=== PATIENT | female | born 1935 | race Caucasian/White ===

== ENCOUNTER → 2017-11-22 09:22 | Outpatient (CLI) | payer MEDICARE, OTHER, SELFPAY ==
--- NOTE | 2017-11-22 | DI.MG.S_ITS ---
BILATERAL DIGITAL SCREENING MAMMOGRAM 3D/2D WITH CAD: 11/22/2017 CLINICAL: Routine screening. Family history of breast cancer. Comparison is made to exams dated: 11/16/2016 mammogram, 11/16/2015 mammogram, and 11/12/2014 mammogram - [facility]. The tissue of both breasts is heterogeneously dense. This may lower the sensitivity of mammography. Current study was also evaluated with a Computer Aided Detection (CAD) system. No significant masses, calcifications, or other findings are seen in either breast. There has been no significant interval change. IMPRESSION: NEGATIVE There is no mammographic evidence of malignancy. A 1 year screening mammogram is recommended. This exam was interpreted at Station ID: [id number]. NOTE: For mammograms, a report in lay terms will be sent to the patient. Approximately 15% of breast malignancies will not be visualized mammographically. In the management of a palpable breast mass, a negative mammogram must not discourage biopsy of a clinically suspicious lesion. Electronically Signed By: Antonia cornejo/amy:11/22/2017 10:11:48 letter sent: Normal Exam ACR BI-RADS Category 1: Negative 3341F
== END ==
PROVIDERS: PCP Internal Medicine; Visit Provider Internal Medicine
DX: Z12.31 Encounter for screening mammogram for malignant neoplasm of breast (principal); Z80.3 Family history of malignant neoplasm of breast
CPT/HCPCS: 77063; 77067

== ENCOUNTER → 2018-02-06 08:39 | Outpatient (CLI) | payer MEDICARE, OTHER, SELFPAY ==
[2018-02-06 09:12] LABS: Add Manual Diff / Slide Review NO; Basophils Percent Auto 0.3 % (0-2); Hematocrit 39.2 % (36-46); Hemoglobin 13.1 g/dL (12.0-16.0); Lymphocytes Percent Auto 31.9 % (25-40); Mean Corpuscular HGB Conc 33.5 % (30-36); Mean Corpuscular Volume 86.8 fL (80-100); Monocytes Percent Auto 11.5 % (3-14); Neutrophils Absolute Auto 1700 /uL (3000-5900); Neutrophils Percent Auto 53.3 % (50-75); Platelet Count 173 X10^3/uL (150-400); Red Blood Cell Count 4.52 X10^6/uL (4.0-5.2); Red Cell Distribution Width 14.1 % (11.6-14.8); White Blood Cell Count 3.1 X10^3/uL (4.5-11.0)
[2018-02-06 09:39] LABS: Alanine Aminotransferase 29 IU/L (9-52); Albumin 4.1 g/dL (3.5-5.0); Albumin Globulin Ratio 1.4 (1.0-2.8); Alkaline Phosphatase 63 U/L (38-126); Aspartate Aminotransferase 23 IU/L (14-36); BUN Creatinine Ratio 22.9 (6-22); Bilirubin Total 0.5 mg/dL (0.2-1.3); Blood Urea Nitrogen 16 mg/dL (7-17); Calcium 9.4 mg/dL (8.4-10.2); Carbon Dioxide 31 mmol/L (22-32); Chloride 104 mmol/L (98-107); Cholesterol 181 mg/dL (140-199); Estimated Glomerular Filt Rate > 60.0 mL/min (>60); Globulin 2.9 g/dL (1.7-4.1); Glucose 91 mg/dL (80-110); HDL Cholesterol 46 mg/dL (40-60); HEMOLYSIS < 15 (0-50); LDL Cholesterol Calculated 112 mg/dL (<100); Potassium 4.1 mmol/L (3.4-5.1); Sodium 143 mmol/L (137-145); Triglycerides 115 mg/dL (35-150); VLDL Cholesterol Calculated 23 mg/dL (2-30)
== END ==
PROVIDERS: PCP Family Medicine; Visit Provider Internal Medicine
DX: E78.2 Mixed hyperlipidemia (principal); I69.30 Unspecified sequelae of cerebral infarction; Z87.442 Personal history of urinary calculi
CPT/HCPCS: 36415; 80053; 80061; 85025

== ENCOUNTER → 2018-10-22 08:13 | Outpatient (CLI) | payer MEDICARE, OTHER, SELFPAY ==
[2018-10-22 11:15] LABS: Cholesterol 155 mg/dL (140-199); HDL Cholesterol 38 mg/dL (40-60); LDL Cholesterol Calculated 95 mg/dL (<100); Triglycerides 109 mg/dL (35-150)
[2018-10-22 11:32] LABS: Vitamin D 25 Hydroxy (D3) 42.9 ng/mL (30.0-100.0)
== END ==
PROVIDERS: PCP Physician Assistant; Visit Provider Physician Assistant
DX: E78.2 Mixed hyperlipidemia (principal); M81.0 Age-related osteoporosis without current pathological fracture
CPT/HCPCS: 36415; 80061; 82306

== ENCOUNTER → 2018-11-22 10:51 | Outpatient (CLI) | payer MEDICARE, OTHER, SELFPAY ==
--- NOTE | 2018-11-22 | DI.MG.S_ITS ---
BILATERAL DIGITAL SCREENING MAMMOGRAM 3D/2D WITH CAD: 11/22/2018 CLINICAL: Routine screening. Family history of breast cancer. Comparison is made to exams dated: 11/22/2017 mammogram, 11/16/2016 mammogram, and 11/16/2015 mammogram - [facility]. The tissue of both breasts is heterogeneously dense. This may lower the sensitivity of mammography. Current study was also evaluated with a Computer Aided Detection (CAD) system. There are benign calcifications in both breasts. No significant masses, calcifications, or other findings are seen in either breast. There has been no significant interval change. IMPRESSION: There is no mammographic evidence of malignancy. A 1 year screening mammogram is recommended. This exam was interpreted at Station ID: [id number]. NOTE: For mammograms, a report in lay terms will be sent to the patient. Approximately 15% of breast malignancies will not be visualized mammographically. In the management of a palpable breast mass, a negative mammogram must not discourage biopsy of a clinically suspicious lesion. Electronically Signed By: Dereje zaldivar/amy:11/22/2018 11:35:14 letter sent: Normal Exam ACR BI-RADS Category 2: Benign Finding(s) 3342F
== END ==
PROVIDERS: PCP Physician Assistant; Visit Provider Physician Assistant
DX: Z12.31 Encounter for screening mammogram for malignant neoplasm of breast (principal); Z80.3 Family history of malignant neoplasm of breast
CPT/HCPCS: 77063; 77067

== ENCOUNTER → 2018-11-22 13:30 | Outpatient (CLI) | payer MEDICARE, OTHER, SELFPAY ==
--- NOTE | 2018-11-22 13:33 | DI.RAD.S_ITS ---
PROCEDURE: XR CERVICAL SPINE 2V OR 3V INDICATIONS: Neck and upper back pain TECHNIQUE: The view(s) of the cervical spine were acquired. COMPARISON: [facility], CERVICAL SPINE 2 OR 3 VIEWS, 02/11/2008, 11:49. FINDINGS: Bones: No fractures or dislocations to the T1 level. The lateral masses of C1 appear intact on the odontoid view. No suspicious bony lesions. There is severe degenerative disc disease at C4-C5, C5-C6 and C6-C7. Bilateral facet arthropathy, severe at C3-C4 bilaterally and C4-C5 bilaterally. Soft tissues: No prevertebral soft tissue swelling. Carotid artery calcification consistent with atherosclerosis. IMPRESSION: Severe degenerative disc and facet disease. Dictated by: Kamryn Walsh M.D. on 11/22/2018 at 17:34 Approved by: Kamryn Walsh M.D. on 11/22/2018 at 17:35
== END ==
PROVIDERS: PCP Physician Assistant; Visit Provider Physician Assistant
DX: M54.9 Dorsalgia, unspecified (principal); M50.321 Other cervical disc degeneration at C4-C5 level; M50.322 Other cervical disc degeneration at C5-C6 level; M50.323 Other cervical disc degeneration at C6-C7 level; M47.812 Spondylosis without myelopathy or radiculopathy, cervical region
CPT/HCPCS: 72040

== ENCOUNTER → 2018-12-11 07:13 | Outpatient (CLI) | payer MEDICARE, OTHER, SELFPAY ==
--- NOTE | 2018-12-11 07:15 | DI.US.S_ITS ---
PROCEDURE: US CAROTID DOPPLER BI INDICATIONS: PLAQUE TECHNIQUE: Color and pulse Doppler interrogation was performed of both carotid systems, with image documentation and velocity measurements. COMPARISON: [facility], , CAROTID ARTERY DOPPLER BILAT, 09/20/2007, 8:40. FINDINGS: Stenosis calculations are based on SRU (Society of Radiologists in Ultrasound) criteria. Right side: Brachial blood pressure: 140/67 mm Hg. Common carotid artery peak systolic velocity: 99 cm/sec. Internal carotid artery peak systolic velocity: 85 cm/sec. Internal carotid artery end diastolic velocity: 26 cm/sec. External carotid artery peak systolic velocity: 75 cm/sec. ICA/CCA peak systolic ratio: 0.9. Oliveira scale imaging description: Minimal scattered plaque. Percent internal carotid artery stenosis: Less than 50%. Vertebral artery: Flow direction is antegrade. Left side: Brachial blood pressure: 137/68 mm Hg. Common carotid artery peak systolic velocity: 95 cm/sec. Internal carotid artery peak systolic velocity: 67 cm/sec. Internal carotid artery end diastolic velocity: 26 cm/sec. External carotid artery peak systolic velocity: 68 cm/sec. ICA/CCA peak systolic ratio: 0.7. Oliveira scale imaging description: Minimal scattered plaque. Percent internal carotid artery stenosis: Less than 50%. Vertebral artery: Flow direction is antegrade. IMPRESSION: Less than 50% bilateral internal carotid artery stenosis. Dictated by: Bhanu Giordano [facility] Interpreted: Maik Carter MD on 12/11/2018 at 16:24 Approved by: Maik Carter M.D. on 12/13/2018 at 10:39
--- NOTE | 2018-12-11 07:15 | DI.MRI.S_ITS ---
PROCEDURE: MR CERVICAL SPINE WO CON INDICATIONS: evaluation TECHNIQUE: Noncontrast sagittal T1 spin echo and T2 fast spin echo, sagittal STIR, foraminal oblique sagittal T2 fast spin echo, and axial gradient echo or T2 fast spin echo through the cervical spine. COMPARISON: None. FINDINGS: Image quality: Excellent. Alignment and Curvature: There is trace C3-C4 and at C4-C5 anterolisthesis. There is trace C5-C6 retrolisthesis. Bone Marrow: Reactive endplate change is noted adjacent to the C4-C5, C5-C6 and C6-C7 discs. Spinal Cord: Visualized spinal cord has normal size and signal. No cerebellar tonsillar herniation. Paraspinous Soft Tissues: No paravertebral masses. Prevertebral soft tissues are normal in thickness. C2-C3: Loss of disc signal. No central stenosis. Moderate left facet hypertrophy. Mild left neural foraminal narrowing. No neural compression. C3-C4: Loss of disc signal. Moderate, diffuse disc bulge. Mild ligamentum flavum hypertrophy. Moderate narrowing of the central canal. Moderate bilateral facet hypertrophy. Moderate bilateral uncovertebral joint hypertrophy. Severe bilateral neural foraminal narrowing with compression of the C4 nerve roots. C4-C5: Loss of disc signal and height. Mild, diffuse disc bulge. Severe right and mild left facet hypertrophy. Mild narrowing of the central canal. Severe right and moderate left neural foraminal narrowing with compression of the right C5 nerve root. C5-C6: Loss of disc signal and height. Mild, diffuse disc bulge. Mild ligamentum flavum hypertrophy. Mild to moderate narrowing of the central canal. Moderate right and mild left facet hypertrophy. Moderate bilateral neural foraminal narrowing. No neural compression. C6-C7: Loss of disc signal and height. Mild to moderate diffuse disc bulge. Mild to moderate narrowing of the central canal. Moderate right and mild left facet hypertrophy. Moderate bilateral neural foraminal narrowing. No neural compression. C7-T1: Loss of the signal. No central stenosis. No neural foraminal narrowing. No neural compression. IMPRESSION: 1. Multilevel degenerative disc disease. 2. Multilevel facet and uncovertebral joint arthropathy. 3. Moderate moderate C3-C4 central canal narrowing. Mild to moderate C5-C6 and C6-C7 central canal narrowing. Mild C4 and C5 central canal narrowing. 4. Severe bilateral C3-C4 neural foraminal narrowing. Severe right and moderate left C4-C5 neural foraminal narrowing. Moderate bilateral C5-C6 and C6-C7 neural foraminal narrowing. Mild left C2 and C3 neural foraminal narrowing. 5. Compression of the exiting bilateral C4 nerve roots and the exiting right C5 nerve root secondary to neural foraminal narrowing. Dictated by: Carley Waters MD, PhD on 12/11/2018 at 13:54 Approved by: Carley Waters MD, PhD on 12/11/2018 at 14:36
== END ==
PROVIDERS: PCP Physician Assistant; Visit Provider Physician Assistant
DX: M50.30 Other cervical disc degeneration, unspecified cervical region (principal); M47.812 Spondylosis without myelopathy or radiculopathy, cervical region; I65.29 Occlusion and stenosis of unspecified carotid artery
CPT/HCPCS: 72141; 93880

== ENCOUNTER → 2019-10-07 08:02 | Outpatient (CLI) | payer MEDICARE, OTHER, SELFPAY ==
[2019-10-07 09:56] LABS: Hematocrit 37.9 % (36-46); Hemoglobin 12.9 g/dL (12.0-16.0); Mean Corpuscular HGB Conc 33.9 % (30-36); Mean Corpuscular Hemoglobin 29.6 PG (26-34); Mean Corpuscular Volume 87.5 fL (80-100); Platelet Count 160 X10^3/uL (150-400); Red Blood Cell Count 4.34 X10^6/uL (4.0-5.2); White Blood Cell Count 3.6 X10^3/uL (4.5-11.0)
[2019-10-07 10:21] LABS: Alanine Aminotransferase 21 IU/L (<35); Albumin Globulin Ratio 1.4 (1.0-2.8); Alkaline Phosphatase 66 U/L (38-126); Aspartate Aminotransferase 26 IU/L (14-36); BUN Creatinine Ratio 23.2 (6-22); Bilirubin Total 0.4 mg/dL (0.2-1.3); Blood Urea Nitrogen 16 mg/dL (7-17); Calcium 9.7 mg/dL (8.4-10.2); Carbon Dioxide 27 mmol/L (22-32); Chloride 105 mmol/L (98-107); Cholesterol 190 mg/dL (140-199); Estimated Glomerular Filt Rate > 60.0 mL/min (>60); Globulin 2.8 g/dL (1.7-4.1); Glucose 88 mg/dL (80-110); HDL Cholesterol 44 mg/dL (40-60); HEMOLYSIS < 15 (0-50); LDL Cholesterol Calculated 120 mg/dL (<100); Sodium 139 mmol/L (137-145); Total Protein 6.8 g/dL (6.3-8.2); Triglycerides 128 mg/dL (35-150)
== END ==
PROVIDERS: PCP Nurse Practitioner Family; Referring Provider Nurse Practitioner Family; Visit Provider Nurse Practitioner Family
DX: D72.819 Decreased white blood cell count, unspecified (principal); M85.80 Other specified disorders of bone density and structure, unspecified site; R79.9 Abnormal finding of blood chemistry, unspecified; E78.2 Mixed hyperlipidemia
CPT/HCPCS: 36415; 80053; 80061; 82306; 85027

== ENCOUNTER → 2019-10-19 09:30 | Outpatient (CLI) | payer MEDICARE, OTHER, SELFPAY ==
[2019-10-20 07:57] LABS: COVID19 Sendout Not Detected (Not Detect)
== END ==
PROVIDERS: PCP Nurse Practitioner Family; Visit Provider Nurse Practitioner
DX: Z01.812 Encounter for preprocedural laboratory examination (principal)
CPT/HCPCS: 87635

== ENCOUNTER 2019-10-22 08:27 | Day surgery (SDC) | payer MEDICARE, OTHER, SELFPAY ==
[2019-10-22] MEDS: PROPARACAINE 0.5% OPHTH SOL 2 DROPS EYE-OP (09:05)
[2019-10-22] MEDS: CATARACT EYE COMPOUND (10 DROPS/SYRINGE) 3 DROPS EYE-OP (09:05)
[2019-10-22 09:06] VITALS: BP 150/66; PULSE 62; RESP 16; TEMP 36.4; O2SAT 98; BMI 27.3
--- NOTE | 2019-10-22 10:10 | PM.PREOP ---
Pre-operative Note Interval Note History & Physical reviewed/Exam performed by Physician: Yes Changes to H&P: No
--- NOTE | 2019-10-22 10:10 | PM.OP.1 ---
Operative Date/Time/Diagnoses Pre-op diagnosis: Nuclear cataract right eye Procedure & Clinicians Procedure: Cataract Surgery Same procedure as scheduled: Yes Surgeon: Jesse Bean Anesthesia Type: MAC +/- and Sedation Operative Notes Procedure in detail: Patient brought to the operating suite. Tetracaine drops placed in the right eye. Patient was prepped and draped in sterile manner. Wire lid speculum was placed in the eye. Betadine drops were placed on the eye. This was irrigated. Lidocaine jelly was placed on the eye. A paracentesis port was created with a side-port blade. 0.1 mL 1% preservative free lidocaine was injected into the anterior chamber. The anterior chamber was deepened with viscoelastic. 2.6 mm keratome was used to create a temporal clear corneal incision. Cystotome and Utrata forceps were used to create continuous tear capsulorrhexis. Balanced salt solution was used to hydro dissect the nucleus. The phacoemulsification handpiece was inserted and the nucleus was removed using the stop and chop technique. The irrigation aspiration handpiece was inserted and the remaining cortex was removed. Anterior chamber was deepened with viscoelastic. An García ZCB00 intraocular lens with a power of 24.5 was injected into the capsular bag. Irrigation aspiration handpiece was inserted and the remaining viscoelastic was removed. Incision was hydrated with balanced salt solution and found to be leak free with pressure with Weck-Nilsa sponges. 0.1 mL Vigamox injected anterior chamber. 0.3 mL Kenalog 10 mg was injected subconjunctivally. Lid speculum was removed. The patient left the operating room in excellent condition. Complications: none Post-operative Condition: stable Disposition: same day surgery
[2019-10-22] MEDS: LIDOCAINE JELLY 2% 5 ML 1 APPLIC TOP (10:40)
[2019-10-22] MEDS: MOXIFLOXACIN INJ 5 MG/ML VIAL EYE-OP (10:40)
[2019-10-22] MEDS: CHONDROIDTIN/SOD HYALURONATE 1.05 ML SYRINGE INTRAOCULA (10:40)
[2019-10-22] MEDS: PHENYLEPHRINE/LIDOCAINE VIAL (OR) 0.2 ML EYE-OP (10:40)
[2019-10-22] MEDS: TRIAMCINOLONE 50 MG/5 ML VIAL INJ (10:40)
[2019-10-22] MEDS: BALANCED SALT IRRIG SOLN NO.2 500 ML, EPINEPHrine 1 MG IRR (10:41)
[2019-10-22] MEDS: TETRACAINE 0.5% OPHTH DROPS 4 ML 2 DROPS EYE-OP (10:41)
[2019-10-22 10:53] VITALS: BP 143/65; PULSE 55; RESP 12; TEMP 36.4; O2SAT 99
== END 2019-10-22 11:10 | disposition home or self-care (01) ==
PROVIDERS: PCP Nurse Practitioner Family; Referring Provider Ophthalmology; Visit Provider Ophthalmology
PROC: (CPT 66984; principal; 2019-10-22 10:15)
DX: H25.11 Age-related nuclear cataract, right eye (principal); G47.33 Obstructive sleep apnea (adult) (pediatric)
CPT/HCPCS: 66984; J0171; J2250; J3301

== ENCOUNTER → 2019-11-02 14:49 | Outpatient (CLI) | payer MEDICARE, OTHER, SELFPAY ==
[2019-11-03 23:05] LABS: COVID19 Sendout Not Detected (Not Detect)
== END ==
PROVIDERS: PCP Nurse Practitioner Family; Visit Provider Physician Assistant
DX: Z01.812 Encounter for preprocedural laboratory examination (principal)
CPT/HCPCS: 87635

== ENCOUNTER 2019-11-05 08:23 | Day surgery (SDC) | payer MEDICARE, OTHER, SELFPAY ==
[2019-11-05] MEDS: CATARACT EYE COMPOUND (10 DROPS/SYRINGE) 3 DROPS EYE-OP (09:07)
[2019-11-05] MEDS: PROPARACAINE 0.5% OPHTH SOL 2 DROPS EYE-OP (09:07)
[2019-11-05 09:24] VITALS: BP 136/90; PULSE 58; RESP 16; TEMP 36.2; O2SAT 98; BMI 24.0
--- NOTE | 2019-11-05 10:00 | PM.PREOP ---
Pre-operative Note Interval Note History & Physical reviewed/Exam performed by Physician: Yes Changes to H&P: No
--- NOTE | 2019-11-05 10:01 | P.OP_ITS ---
Operative Date/Time/Diagnoses Pre-op diagnosis: Nuclear Cataract Left eye Post-op diagnosis: same Procedure & Clinicians Same procedure as scheduled: Yes Surgeon: Jesse Bean Anesthesia Type: MAC +/- and Sedation Operative Notes Procedure in detail: Patient brought to the operating suite. Tetracaine drops placed in the left eye. Patient was prepped and draped in sterile manner. Wire lid speculum was placed in the eye. Betadine drops were placed on the eye. This was irrigated. Lidocaine jelly was placed on the eye. A paracentesis port was created with a side-port blade. 0.1 mL 1% preservative free lidocaine was injected into the anterior chamber. The anterior chamber was deepened with viscoelastic. 2.6 mm keratome was used to create a temporal clear corneal incision. Cystotome and Utrata forceps were used to create continuous tear capsulorrhexis. Balanced salt solution was used to hydro dissect the nucleus. The phacoemulsification handpiece was inserted and the nucleus was removed using the stop and chop technique. The irrigation aspiration handpiece was inserted and the remaining cortex was removed. Anterior chamber was deepened with viscoe lastic. An García ZCB00 intraocular lens with a power of 24.5 was injected into the capsular bag. Irrigation aspiration handpiece was inserted and the remaining viscoelastic was removed. Incision was hydrated with balanced salt solution and found to be leak free with pressure with Weck-Nilsa sponges. 0.1 mL Vigamox injected anterior chamber. 0.3 mL Kenalog 10 mg was injected subconjunctivally. Lid speculum was removed. The patient left the operating room in excellent condition. Complications: none Post-operative Condition: stable Disposition: same day surgery
[2019-11-05] MEDS: CHONDROIDTIN/SOD HYALURONATE 1.05 ML SYRINGE INTRAOCULA (10:36)
[2019-11-05] MEDS: LIDOCAINE JELLY 2% 5 ML 1 APPLIC TOP (10:36)
[2019-11-05] MEDS: MOXIFLOXACIN INJ 5 MG/ML VIAL EYE-OP (10:36)
[2019-11-05] MEDS: PHENYLEPHRINE/LIDOCAINE VIAL (OR) 0.2 ML EYE-OP (10:36)
[2019-11-05] MEDS: TRIAMCINOLONE 50 MG/5 ML VIAL INJ (10:37)
[2019-11-05] MEDS: TETRACAINE 0.5% OPHTH DROPS 4 ML 2 DROPS EYE-OP (10:37)
[2019-11-05] MEDS: BALANCED SALT IRRIG SOLN NO.2 500 ML, EPINEPHrine 1 MG IRR (10:37)
[2019-11-05 14:21] VITALS: BP 120/56; PULSE 55; RESP 16; TEMP 36.3; O2SAT 94
== END 2019-11-05 10:57 | disposition home or self-care (01) ==
PROVIDERS: PCP Nurse Practitioner Family; Referring Provider Ophthalmology; Visit Provider Ophthalmology
PROC: (CPT 66984; principal; 2019-11-05 10:15)
DX: H25.12 Age-related nuclear cataract, left eye (principal); G47.33 Obstructive sleep apnea (adult) (pediatric); E78.5 Hyperlipidemia, unspecified; K21.9 Gastro-esophageal reflux disease without esophagitis; F41.9 Anxiety disorder, unspecified; F32.9 Major depressive disorder, single episode, unspecified
CPT/HCPCS: 66984; J0171; J2250; J3010; J3301

== ENCOUNTER → 2019-11-16 11:08 | Outpatient (CLI) | payer MEDICARE, OTHER, SELFPAY ==
[2019-11-18 20:45] LABS: COVID19 Sendout Not Detected (Not Detect)
== END ==
PROVIDERS: PCP Nurse Practitioner Family; Visit Provider Physician Assistant
DX: Z11.59 Encounter for screening for other viral diseases (principal)
CPT/HCPCS: 87635

== ENCOUNTER 2019-11-19 12:01 | Day surgery (SDC) | payer MEDICARE, OTHER, SELFPAY ==
--- NOTE | 2019-11-19 | PATH_ITS ---
[facility] Accession Number: [id number] . 01 Material submitted: . PART A: colon - RANDOM RIGHT COLON PART B: colon - RANDOM TRANSVERSE COLON PART C: colon - RANDOM LEFT COLON . 02 Diagnosis: A-B: Random Right, Transverse Colon, Biopsies: Colonic mucosa with no diagnostic abnormality. Negative for active, chronic, and microscopic colitis. Negative for dysplasia and malignancy. . C. Random Left Colon, Biopsies: Colonic mucosa with mild melanosis coli. Negative for active, chronic, and microscopic colitis. Negative for dysplasia and malignancy. MRV 11/21/2019 1312 Local . 02 Electronically signed: . Chester Rebolledo MD, PhD, Pathologist NPI- [id number] . 01 Gross description: . Part A: RANDOM RIGHT COLON: Received in formalin is 1 fragment(s) of hernandez, soft tissue measuring 0.4 x 0.3 x 0.2 cm submitted entirely in 1 cassette(s) Part B: RANDOM TRANSVERSE COLON: Received in formalin are 2 fragment(s) of hernandez, soft tissue measuring 0.3 x 0.3 x 0.2 cm to 0.2 x 0.1 x 0.1 cm submitted entirely in 1 cassette(s) Part C: RANDOM LEFT COLON: Received in formalin is 1 fragment(s) of hernandez, soft tissue measuring 0.3 x 0.2 x 0.2 cm submitted entirely in 1 cassette(s) /QBJ 11/20/2019 0930 Local . 02 Pathologist provided ICD-10: R19.4, K63.89 . 02 CPT . 402621, 502357, 640829 Performed at: [address] [facility] [address], [place], [place] [id number] MD Brandin Cheng MD Phone: [phone] Performed at: 02 [facility] [address] [place] [id number] MD Jamila Razo MD Phone: [phone]
[2019-11-19 12:19] VITALS: BP 133/76; PULSE 84; RESP 20; TEMP 36.3; O2SAT 93
[2019-11-19 12:21] VITALS: BMI 26.3
--- NOTE | 2019-11-19 12:47 | PM.HP.1 ---
History of Present Illness History of Present Illness Date Patient Seen: 11/19/19 Time Patient Seen: 12:48 Chief complaint: SDC Narrative: This is an 84-year-old woman with history of colonoscopy 10 years ago, on which she believes they found some polyps. She denies any melena, hematochezia, unexplained abdominal pain, or unexplained weight loss. She has had some change in her bowel habits, with frequent bowel movements throughout the day. So she was referred for a colonoscopy. ROS: Positive for anxiety, depression, psoriasis, kidney stones, sleep apnea, GERD symptoms. Thirteen system review is otherwise negative other than as mentioned below and in HPI. PE: GENERAL: Well groomed and cooperative. Appears stated age. Answers questions promptly and appropriately. Vital signs noted. HENT: Normocephalic, atraumatic. Hearing intact. EYES: Conjunctiva pink, sclera white, no periorbital swelling. CARDIOVASCULAR: Regular rate. No pedal edema. RESPIRATORY: Non-tachypneic, breathing comfortably on room air. GASTROINTESTINAL: Abdomen soft and non-distended GENITALURINARY: No flank tenderness. MUSCULOSKELETAL: Equal tone and mass bilaterally. SKIN: Warm, dry, soft, appropriate color for ethnicity. No other lesions, rashes, or wounds. NEURO: Alert and Oriented X 3. No gross sensory deficits, or cognitive issues. PSYCH: Appropriate affect and mood. 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 Father Alcohol abuse Social History: household members spouse lives independently Yes caregiver/support person No Tobacco & Substance use: Smoking Status Former smoker alcohol intake current alcohol intake frequency 0-2 drinks per day Substance Use Type does not use Meds Home Medications and Allergies Home Medications Medication Instructions Recorded Confirmed Type omeprazole 20 mg capsule,delayed 20 mg PO DAILY 10/02/19 11/19/19 History release paroxetine HCl 10 mg tablet 10 mg PO DAILY #90 tab 10/02/19 11/19/19 Rx pravastatin 20 mg tablet 20 mg PO QDAY #90 tab 10/02/19 11/19/19 Rx cephalexin 500 mg capsule 500 mg PO BID 10 Days #20 cap 11/16/19 11/19/19 Rx Aspir-81 81 mg PO DAILY 11/19/19 11/19/19 History Allergies Allergy/AdvReac Type Severity Reaction Status Date / Time imipramine [IMIPRAMINE] Allergy Intermediate Hives Verified 11/19/19 12:14 Sulfa (Sulfonamide Allergy Mild HIVES Verified 11/16/19 11:07 Antibiotics) [SULFA (SULFONAMIDE ANTIBIOTICS)] Exam Vital Signs (past 8 hours): - 11/19/19 12:19 Temperature 97.4 F L Pulse Rate 84 Respiratory Rate 20 Blood Pressure 133/76 Pulse Oximetry 93 Oxygen Delivery Method Room Air Assessment & Plan Assessment & Plan narrative: Risks and benefits of screening colonoscopy and possible polypectomy were discussed with the patient including risk of bleeding, perforation, need for additional procedures, risks of anesthesia. The patient desires to proceed with the colonoscopy procedure. COVID-19 COVID-19 status: Negative Result date/Date tested (Pos, Neg/Pending): 11/16/19 Quality VTE Deep Vein Thrombosis/Pulmonary Embolism Present on Admission: No
[2019-11-19] MEDS: SODIUM CHLORIDE 0.9% 1,000 ML 200 ML IV (12:51)
--- NOTE | 2019-11-19 13:00 | P.OP.ENDO_ITS ---
Operative Date/Time/Diagnoses Date of procedure: 11/19/19 Time of procedure: 13:00 Pre-op diagnosis: Change in bowel habits Post-op diagnosis: other (Normal appearing colonic mucosa with some diverticulosis, biopsies performed for microscopic colitis) Procedure & Clinicians Study performed: Colonoscopy, random biopsies from ascending, transverse, and descending colon using cold forceps Procedural sedation performed by the endoscopist Indications: 84-year-old woman with previous colonoscopy 10 years ago. Comes in for colonoscopy due to change in bowel habits. Surgeon: Florencia Coronado Procedure Notes SCOAP/Timeout: Performed Procedure in detail: The patient was brought to the room and placed in left lateral decubitus position with all bony prominences padded. A time-out was performed and then the patient was given procedural sedation starting with 2 mg of Versed and [100] mcg of fentanyl. Vitals were monitored throughout the procedure and remained stable. Once adequately sedated, the procedure was begun. A rectal exam was performed revealing [no abnormalities]. The colonoscope was then introduced to the rectum and advanced to the cecum in the usual fashion. [The colon was very tortuous, but the colonic mucosa appeared normal.]The cecum was identified by the appendiceal orifice, the mucosal tri- fold, and the ileocecal valve. The scope was then retracted while rotating side to side and examining each mucosal fold. Random biopsies were taken from the ascending, transverse, and descending colon to rule out microscopic colitis. Moderate diverticulosis with thickening of the sigmoid colon was seen, but no active diverticulitis, and no lesions or sources of bleeding were seen. [] At the conclusion of the procedure retroflexion was performed and [small grade 1-2 internal hemorrhoids without stigmata of bleeding were seen]. The scope was then withdrawn from the rectum the procedure was concluded. The patient tolerated the procedure well and was transferred to the PACU in stable condition. Scope withdrawal time: 8 Sedation minutes: 23 Findings: diverticulosis Specimen(s): other (Random biopsies of right colon, transverse colon, left colon) Complications: none Impression: Normal appearing colon, with some diverticulosis, and thickening of the sigmoid colon likely secondary to past episodes of diverticulitis Post-procedure Recommendations: Colonscopy in 10 years (If patient is healthy enough for colonoscopy at that time) Follow up: as needed Disposition: PACU
[2019-11-19] MEDS: fentaNYL 250 MCG/5 ML INJ IV (13:25)
[2019-11-19] MEDS: MIDAZOLAM 5 MG/5 ML VIAL IV (13:26)
[2019-11-19 13:32] VITALS: BP 102/80; PULSE 66; RESP 17; TEMP 36.2; O2SAT 93
[2019-11-19 13:37] VITALS: BP 104/59; PULSE 63; RESP 19; O2SAT 93
[2019-11-19 13:42] VITALS: BP 104/58; PULSE 62; RESP 15; O2SAT 93
[2019-11-19 13:47] VITALS: BP 98/51; PULSE 60; RESP 16; TEMP 36.6; O2SAT 96
[2019-11-19 14:10] VITALS: BP 104/56; PULSE 77; RESP 16; TEMP 36.6; O2SAT 95
== END 2019-11-19 14:13 | disposition home or self-care (01) ==
PROVIDERS: PCP Nurse Practitioner Family; Referring Provider Surgery; Visit Provider Surgery
PROC: 0DJD8ZZ Inspection of Lower Intestinal Tract, Via Natural or Artificial Opening Endoscopic (ICD-10-PCS; CPT 45378; principal; 2019-11-19 13:00)
DX: K57.30 Diverticulosis of large intestine without perforation or abscess without bleeding (principal); K64.0 First degree hemorrhoids; K63.89 Other specified diseases of intestine; F41.9 Anxiety disorder, unspecified; F32.9 Major depressive disorder, single episode, unspecified; G47.33 Obstructive sleep apnea (adult) (pediatric); K21.9 Gastro-esophageal reflux disease without esophagitis
CPT/HCPCS: 45380; 99152; J2250; J3010

== ENCOUNTER → 2019-12-11 11:57 | Outpatient (CLI) | payer MEDICARE, OTHER, SELFPAY ==
--- NOTE | 2019-12-11 12:16 | DI.MG.S_ITS ---
Patient Name: JENNIFER MAIER date: 1935 Sex: F Attending Physician: Samuel Indications: Date: 12/11/2019 12:09 At the request of: CARY LEE Procedure: MM screening mammo BI BILATERAL DIGITAL SCREENING MAMMOGRAM 3D/2D WITH CAD: 12/11/2019 CLINICAL: Routine screening. Family history of breast cancer. Comparison is made to exams dated: 11/22/2018 mammogram, 11/22/2017 mammogram, and 11/16/2016 mammogram - [facility]. The tissue of both breasts is heterogeneously dense. This may lower the sensitivity of mammography. Current study was also evaluated with a Computer Aided Detection (CAD) system. There is a new 0.4 cm grouping of heterogeneous calcifications in the left breast at 3 o'clock middle depth. No other significant masses, calcifications, or other findings are seen in either breast. IMPRESSION: INCOMPLETE: NEEDS ADDITIONAL IMAGING EVALUATION The new 0.4 cm grouping of heterogeneous calcifications in the left breast resembles a degenerating fibroadenoma and is indeterminate. Mediolateral and spot magnifications views are recommended. This exam was interpreted at Station ID: [id number]. NOTE: For mammograms, a report in lay terms will be sent to the patient. Approximately 15% of breast malignancies will not be visualized mammographically. In the management of a palpable breast mass, a negative mammogram must not discourage biopsy of a clinically suspicious lesion. Electronically Signed By: Dereje Hollis M.D. aty/:12/11/2019 12:44:20 letter sent: Additional Imaging Needed ACR BI-RADS Category 0: Incomplete 3340F Continued Report - Page 2 of 2 Patient Name: JENNIFER MAIER date: 1935 Sex: F Attending Physician: Samuel Indications: Date: 12/11/2019 12:09 At the request of: CARY LEE Procedure: MM screening mammo BI
== END ==
PROVIDERS: PCP Nurse Practitioner Family; Referring Provider Nurse Practitioner Family; Visit Provider Nurse Practitioner Family
DX: Z12.31 Encounter for screening mammogram for malignant neoplasm of breast (principal); Z80.3 Family history of malignant neoplasm of breast
CPT/HCPCS: 77063; 77067

== ENCOUNTER → 2020-01-09 13:29 | Outpatient (CLI) | payer MEDICARE, OTHER, SELFPAY ==
--- NOTE | 2020-01-09 | DI.MG.S_ITS ---
UNILATERAL LEFT DIGITAL DIAGNOSTIC MAMMOGRAM 3D/2D WITH ADDITIONAL VIEWS: 01/09/2020 CLINICAL: Additional evaluation requested from prior study. Comparison is made to exams dated: 12/11/2019 mammogram, 11/22/2018 mammogram, and 11/22/2017 mammogram - [facility]. The tissue of left breast is heterogeneously dense. This may lower the sensitivity of mammography. There are new grouped fine punctate calcifications in the left breast at 2 o'clock middle depth. No other significant masses or calcifications are seen in the breast. IMPRESSION: SUSPICIOUS OF MALIGNANCY The new grouped fine punctate calcifications in the left breast are at a moderate suspicion for malignancy. A stereotactic biopsy is recommended. The findings were discussed with the patient at the conclusion of the study by Dr. Waters. This exam was interpreted at Station ID: [id number]. NOTE: For mammograms, a report in lay terms will be sent to the patient. Approximately 15% of breast malignancies will not be visualized mammographically. In the management of a palpable breast mass, a negative mammogram must not discourage biopsy of a clinically suspicious lesion. Electronically Signed By: Brandin monreal/:01/09/2020 14:05:46 letter sent: Biopsy Required ACR BI-RADS Category 4b: Suspicious abnormality - intermediate suspicion of malignancy 3344F
== END ==
PROVIDERS: PCP Nurse Practitioner Family; Referring Provider Nurse Practitioner Family; Visit Provider Nurse Practitioner Family
DX: R92.8 Other abnormal and inconclusive findings on diagnostic imaging of breast (principal); R92.1 Mammographic calcification found on diagnostic imaging of breast
CPT/HCPCS: 77065; G0279

== ENCOUNTER → 2020-08-17 14:59 | Outpatient (CLI) | payer MEDICARE, OTHER, SELFPAY ==
--- NOTE | 2020-08-17 15:02 | DI.MG.S_ITS ---
UNILATERAL LEFT DIGITAL DIAGNOSTIC MAMMOGRAM 3D/2D POST LUMPECTOMY: 08/17/2020 CLINICAL: Left breast pain. Comparison is made to exams dated: 08/17/2020 mammogram - [facility], 02/10/2020 breast MRI, 01/17/2020 stereotactic biopsy - [facility], 01/09/2020 mammogram, and 12/11/2019 mammogram - [facility]. The tissue of left breast is heterogeneously dense. This may lower the sensitivity of mammography. There is a stable benign appearing dystrophic calcification in the left breast at 1 o'clock posterior depth near the lumpectomy site. No other significant masses or calcifications are seen in the breast. IMPRESSION: INCOMPLETE: NEEDS ADDITIONAL IMAGING EVALUATION No new mass or calcifications. Stable appearance of the left lumpectomy site. A targeted ultrasound in the region of pain is recommended and will immediately follow. This exam was interpreted at Station ID: [id number]. NOTE: For mammograms, a report in lay terms will be sent to the patient. Approximately 15% of breast malignancies will not be visualized mammographically. In the management of a palpable breast mass, a negative mammogram must not discourage biopsy of a clinically suspicious lesion. Electronically Signed By: Ganesh Turk M.D. slc/:08/19/2020 09:23:44 copy to: LETITIA VARGHESE copy to: ROBERTO CARLOS GIBSON ACR BI-RADS Category 0: Incomplete 3340F
--- NOTE | 2020-08-17 15:02 | DI.US.S_ITS ---
LIMITED ULTRASOUND OF LEFT BREAST AND AXILLA: 08/17/2020 CLINICAL: Palpable left breast lump by physician at left lumpectomy site. Comparison is made to exams dated: 08/17/2020 mammogram, 08/17/2020 mammogram, 01/09/2020 mammogram, 12/11/2019 mammogram, and 11/22/2018 mammogram - [facility]. Color flow and real-time ultrasound of the left breast 3:00 region and axilla were performed. Oliveira scale images of the real-time examination were reviewed. There is a benign irregular post-surgical scar in the left breast at 3 o'clock middle depth. This irregular post-surgical scar is hypoechoic. This correlates with mammography findings. There are associated surgical clips. Color flow imaging demonstrates that there is no vascularity present. No significant abnormalities were seen sonographically in the left axilla. IMPRESSION: BENIGN There is no sonographic evidence of malignancy. The irregular post-surgical scar in the left breast has a benign appearance. A 1 year screening mammogram is recommended. Exam findings were conveyed to the patient. Patient is advised to monitor for significant change. Clinical follow-up as needed. This exam was interpreted at Station ID: [id number]. Electronically Signed By: Ganesh Turk M.D. slc/:08/19/2020 09:25:35 copy to: LETITIA VARGHESE copy to: ROBERTO CARLOS GIBSON letter sent: Clinical Evaluation Ultrasound BI-RADS: 2 Benign
== END ==
PROVIDERS: PCP Nurse Practitioner Family; Referring Provider Internal Medicine Hematology & Oncology; Visit Provider Internal Medicine Hematology & Oncology
DX: R92.8 Other abnormal and inconclusive findings on diagnostic imaging of breast (principal); N64.4 Mastodynia; L90.5 Scar conditions and fibrosis of skin; C50.912 Malignant neoplasm of unspecified site of left female breast
CPT/HCPCS: 76642; 77065; G0279

== ENCOUNTER → 2020-10-29 14:34 | Outpatient (CLI) | payer MEDICARE, OTHER, SELFPAY ==
[2020-10-29 15:55] LABS: Add Manual Diff / Slide Review NO; Basophils Absolute Auto 0 /uL (0-100); Basophils Percent Auto 1.1 % (0-2); Eosinophils Absolute Auto 100 /uL (0-450); Eosinophils Percent Auto 2.3 % (2-4); Hematocrit 39.3 % (36-46); Lymphocytes Absolute Auto 1000 /uL (1100-4500); Lymphocytes Percent Auto 21.9 % (25-40); Mean Corpuscular Hemoglobin 28.9 PG (26-34); Mean Corpuscular Volume 87.6 fL (80-100); Monocytes Absolute Auto 400 /uL (0-900); Monocytes Percent Auto 9.4 % (3-14); Neutrophils Absolute Auto 2900 /uL (1500-7000); Neutrophils Percent Auto 65.3 % (50-75); Platelet Count 181 X10^3/uL (150-400); Red Blood Cell Count 4.49 X10^6/uL (4.0-5.2); Red Cell Distribution Width 14.6 % (11.6-14.8); White Blood Cell Count 4.5 X10^3/uL (4.5-11.0)
[2020-10-29 16:18] LABS: Alanine Aminotransferase 22 IU/L (<35); Albumin Globulin Ratio 1.4 (1.0-2.8); Alkaline Phosphatase 88 U/L (38-126); Aspartate Aminotransferase 26 IU/L (14-36); BUN Creatinine Ratio 23.7 (6-22); Bilirubin Total 0.3 mg/dL (0.2-1.3); Bilirubin Unconjugated 0.1 mg/dL (0.0-1.1); Blood Urea Nitrogen 14 mg/dL (7-17); Calcium 9.3 mg/dL (8.4-10.2); Carbon Dioxide 27 mmol/L (22-32); Chloride 106 mmol/L (98-107); Estimated Glomerular Filt Rate > 60.0 mL/min (>60); Globulin 2.9 g/dL (1.7-4.1); Glucose 114 mg/dL (80-110); HEMOLYSIS < 15 (0-50); Potassium 3.9 mmol/L (3.4-5.1); Sodium 138 mmol/L (137-145); Total Protein 6.9 g/dL (6.3-8.2)
== END ==
PROVIDERS: PCP Nurse Practitioner Family; Referring Provider Physician Assistant; Visit Provider Physician Assistant
DX: L40.8 Other psoriasis (principal)
CPT/HCPCS: 36415; 80053; 80076; 85025

== ENCOUNTER → 2020-11-30 10:13 | Outpatient (CLI) | payer MEDICARE, OTHER, SELFPAY ==
[2020-11-30 11:20] LABS: Add Manual Diff / Slide Review NO; Basophils Absolute Auto 100 /uL (0-100); Basophils Percent Auto 1.4 % (0-2); Eosinophils Absolute Auto 100 /uL (0-450); Eosinophils Percent Auto 2.9 % (2-4); Hemoglobin 12.3 g/dL (12.0-16.0); Lymphocytes Absolute Auto 700 /uL (1100-4500); Lymphocytes Percent Auto 18.8 % (25-40); Mean Corpuscular HGB Conc 33.3 % (30-36); Mean Corpuscular Hemoglobin 29.2 PG (26-34); Mean Corpuscular Volume 87.9 fL (80-100); Monocytes Absolute Auto 400 /uL (0-900); Monocytes Percent Auto 9.8 % (3-14); Neutrophils Absolute Auto 2500 /uL (1500-7000); Neutrophils Percent Auto 67.1 % (50-75); Platelet Count 176 X10^3/uL (150-400); Red Blood Cell Count 4.21 X10^6/uL (4.0-5.2); Red Cell Distribution Width 14.9 % (11.6-14.8); White Blood Cell Count 3.7 X10^3/uL (4.5-11.0)
[2020-11-30 11:33] LABS: Alanine Aminotransferase 19 IU/L (<35); Albumin 3.9 g/dL (3.5-5.0); Albumin Globulin Ratio 1.3 (1.0-2.8); Alkaline Phosphatase 70 U/L (38-126); Aspartate Aminotransferase 26 IU/L (14-36); BUN Creatinine Ratio 28.1 (6-22); Bilirubin Total 0.3 mg/dL (0.2-1.3); Bilirubin Unconjugated 0.2 mg/dL (0.0-1.1); Blood Urea Nitrogen 16 mg/dL (7-17); Calcium 9.7 mg/dL (8.4-10.2); Carbon Dioxide 29 mmol/L (22-32); Chloride 104 mmol/L (98-107); Estimated Glomerular Filt Rate > 60.0 mL/min (>60); Globulin 2.9 g/dL (1.7-4.1); Glucose 111 mg/dL (80-110); HEMOLYSIS < 15 (0-50); Sodium 138 mmol/L (137-145); Total Protein 6.8 g/dL (6.3-8.2)
== END ==
PROVIDERS: PCP Nurse Practitioner Family; Referring Provider Physician Assistant; Visit Provider Physician Assistant
DX: L40.8 Other psoriasis; L82.0 Inflamed seborrheic keratosis; L29.8 Other pruritus; L71.8 Other rosacea; Z01.810 Encounter for preprocedural cardiovascular examination
CPT/HCPCS: 36415; 80053; 80076; 85025

== ENCOUNTER → 2020-12-11 10:53 | Outpatient (CLI) | payer MEDICARE, OTHER, SELFPAY ==
--- NOTE | 2020-12-11 10:54 | DI.MG.S_ITS ---
UNILATERAL RIGHT DIGITAL SCREENING MAMMOGRAM 3D/2D WITH CAD: 12/11/2020 CLINICAL: Routine screening right. Personal history of left breast cancer. Comparison is made to exams dated: 08/17/2020 mammogram, 08/17/2020 mammogram - [facility], 01/17/2020 specimen - [facility], and 08/17/2020 ultrasound - [facility]. The tissue of right breast is heterogeneously dense. This may lower the sensitivity of mammography. Current study was also evaluated with a Computer Aided Detection (CAD) system. There are calcifications in the right breast. No significant masses, calcifications, or other findings are seen in the breast. There has been no significant interval change. IMPRESSION: BENIGN There is no mammographic evidence of malignancy. A follow up bilateral screening mammogram is recommended which is due approximately August 2021. This exam was interpreted at Station ID: [id number]. NOTE: For mammograms, a report in lay terms will be sent to the patient. Approximately 15% of breast malignancies will not be visualized mammographically. In the management of a palpable breast mass, a negative mammogram must not discourage biopsy of a clinically suspicious lesion. Electronically Signed By: Dereje Hollis M.D. aty/:12/11/2020 15:26:49 copy to: LETITIA VARGHESE copy to: ROBERTO CARLOS GIBSON letter sent: Normal Exam ACR BI-RADS Category 2: Benign Finding(s) 3342F
== END ==
PROVIDERS: PCP Nurse Practitioner Family; Referring Provider Internal Medicine Hematology & Oncology; Visit Provider Internal Medicine Hematology & Oncology
DX: C50.912 Malignant neoplasm of unspecified site of left female breast; Z12.31 Encounter for screening mammogram for malignant neoplasm of breast
CPT/HCPCS: 77063; 77067

== ENCOUNTER → 2021-02-09 08:40 | Outpatient (CLI) | payer MEDICARE, OTHER, SELFPAY ==
--- NOTE | 2021-02-09 08:41 | DI.RAD.S_ITS ---
PROCEDURE: XR FOOT RT MIN 3V INDICATIONS: right great toe pain TECHNIQUE: 3 views of the foot were acquired. COMPARISON: None. FINDINGS: Bones: No fractures or dislocations. No suspicious bony lesions. Mild 1st MTP joint osteoarthritis. Small dorsal calcaneal bone spur. Soft tissues: No tibiotalar joint effusion. Achilles tendon appears normal. 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
[2021-02-09 09:35] LABS: Uric Acid 2.6 mg/dL (2.5-6.2)
== END ==
PROVIDERS: PCP Nurse Practitioner Family; Referring Provider Family Medicine; Visit Provider Family Medicine
DX: M79.674 Pain in right toe(s) (principal)
CPT/HCPCS: 36415; 73630; 84550

== ENCOUNTER → 2021-08-23 08:37 | Outpatient (CLI) | payer MEDICARE, OTHER, SELFPAY ==
[2021-08-23 10:23] LABS: Cholesterol 186 mg/dL (140-199); HDL Cholesterol 46 mg/dL (40-60); LDL Cholesterol Calculated 111 mg/dL (<100); Triglycerides 147 mg/dL (35-150)
== END ==
PROVIDERS: PCP Internal Medicine; Referring Provider Internal Medicine; Visit Provider Internal Medicine
DX: E78.2 Mixed hyperlipidemia (principal)
CPT/HCPCS: 36415; 80061; 84443

== ENCOUNTER → 2021-08-24 11:46 | Outpatient (CLI) | payer MEDICARE, OTHER, SELFPAY | PROVIDERS: PCP Internal Medicine; Referring Provider Internal Medicine; Visit Provider Internal Medicine | DX: Z78.0 Asymptomatic menopausal state (principal); M85.89 Other specified disorders of bone density and structure, multiple sites | CPT/HCPCS: 77080 ==

== ENCOUNTER → 2021-12-13 10:31 | Outpatient (CLI) | payer MEDICARE, OTHER, SELFPAY ==
--- NOTE | 2021-12-13 | DI.MG.S_ITS ---
BILATERAL DIGITAL SCREENING MAMMOGRAM 3D/2D WITH CAD POST LUMPECTOMY: 12/13/2021 CLINICAL: Routine screening. Personal history of left breast cancer. Family history of breast cancer. Comparison is made to exams dated: 12/11/2020 mammogram, 12/11/2019 mammogram, 11/22/2018 mammogram, 08/17/2020 mammogram, 11/22/2017 mammogram, and 11/16/2016 mammogram - [facility]. Both breasts are heterogeneously dense, which may obscure small masses (category c / 51-75% glandular tissue). Current study was also evaluated with a Computer Aided Detection (CAD) system. There are benign calcifications in both breasts. There also are benign vascular calcifications in the right breast. Additionally, there are benign post operative findings in the left breast. No significant masses, calcifications, or other findings are seen in either breast. There has been no significant interval change. IMPRESSION: BENIGN There is no mammographic evidence of malignancy. A 1 year screening mammogram is recommended. This exam was interpreted at Station ID: [id number]. NOTE: For mammograms, a report in lay terms will be sent to the patient. Approximately 15% of breast malignancies will not be visualized mammographically. In the management of a palpable breast mass, a negative mammogram must not discourage biopsy of a clinically suspicious lesion. Electronically Signed By: Ganesh lucio/amy:12/13/2021 11:10:49 copy to: LETITIA VARGHESE copy to: ROBERTO CARLOS GIBSON letter sent: Normal Exam ACR BI-RADS Category 2: Benign Finding(s) 3342F
== END ==
PROVIDERS: PCP Internal Medicine; Referring Provider Internal Medicine; Visit Provider Internal Medicine
DX: Z12.31 Encounter for screening mammogram for malignant neoplasm of breast (principal); Z85.3 Personal history of malignant neoplasm of breast; Z80.3 Family history of malignant neoplasm of breast
CPT/HCPCS: 77063; 77067

== ENCOUNTER → 2022-01-24 11:13 | Outpatient (CLI) | payer MEDICARE, OTHER, SELFPAY ==
[2022-01-24 12:07] LABS: Add Manual Diff / Slide Review NO; Basophils Absolute Auto 0 /uL (0-100); Basophils Percent Auto 0.9 % (0-2); Eosinophils Absolute Auto 100 /uL (0-450); Eosinophils Percent Auto 3.6 % (2-4); Hematocrit 35.5 % (36-46); Hemoglobin 11.8 g/dL (12.0-16.0); Lymphocytes Absolute Auto 800 /uL (1100-4500); Lymphocytes Percent Auto 21.9 % (25-40); Mean Corpuscular HGB Conc 33.3 % (30-36); Mean Corpuscular Hemoglobin 28.7 PG (26-34); Monocytes Absolute Auto 400 /uL (0-900); Monocytes Percent Auto 10.6 % (3-14); Neutrophils Absolute Auto 2300 /uL (1500-7000); Platelet Count 169 X10^3/uL (150-400); Red Blood Cell Count 4.13 X10^6/uL (4.0-5.2); Red Cell Distribution Width 14.6 % (11.6-14.8); White Blood Cell Count 3.6 X10^3/uL (4.5-11.0)
[2022-01-24 12:17] LABS: Alanine Aminotransferase 22 IU/L (<35); Albumin 3.9 g/dL (3.5-5.0); Albumin Globulin Ratio 1.3 (1.0-2.8); Alkaline Phosphatase 59 U/L (38-126); Aspartate Aminotransferase 25 IU/L (14-36); BUN Creatinine Ratio 17.6 (6-22); Bilirubin Total 0.3 mg/dL (0.2-1.3); Blood Urea Nitrogen 12 mg/dL (7-17); Carbon Dioxide 29 mmol/L (22-32); Chloride 102 mmol/L (98-107); Estimated Glomerular Filt Rate > 60 mL/min (>60); Globulin 3.1 g/dL (1.7-4.1); Glucose 95 mg/dL (80-110); HEMOLYSIS < 15 (0-50); Potassium 3.9 mmol/L (3.4-5.1); Sodium 139 mmol/L (137-145)
== END ==
PROVIDERS: Internal Medicine Hematology & Oncology; PCP Internal Medicine; Referring Provider Internal Medicine; Visit Provider Internal Medicine
DX: C50.912 Malignant neoplasm of unspecified site of left female breast (principal)
CPT/HCPCS: 36415; 80053; 85025

== ENCOUNTER → 2022-03-28 10:49 | Outpatient (CLI) | payer MEDICARE, OTHER, SELFPAY ==
[2022-03-28 11:52] LABS: COVID-19 CEPHEID 4-PLEX PCR Negative (Negative); Influenza A - CEPHEID Flu A NEGATIVE (NEGATIVE); Influenza B - CEPHEID Flu B NEGATIVE (NEGATIVE); Respiratory Syncytial Virus POSITIVE (Negative)
== END ==
PROVIDERS: PCP Internal Medicine; Visit Provider Nurse Practitioner Family
DX: R05.1 Acute cough (principal); Z20.822 Contact with and (suspected) exposure to COVID-19
CPT/HCPCS: 0241U

== ENCOUNTER → 2022-04-11 09:47 | Outpatient (CLI) | payer MEDICARE, OTHER, SELFPAY ==
[2022-04-13 13:30] LABS: Occult Blood 1 Negative (Negative); Occult Blood 2 Negative (Negative); Occult Blood 3 Negative (Negative)
== END ==
PROVIDERS: PCP Internal Medicine; Referring Provider Student in an Organized Health Care Education/Training Program; Visit Provider Student in an Organized Health Care Education/Training Program
DX: K92.1 Melena (principal); R10.12 Left upper quadrant pain
CPT/HCPCS: 82270

== ENCOUNTER → 2022-04-29 10:57 | Outpatient (CLI) | payer MEDICARE, OTHER, SELFPAY ==
[2022-04-29 12:08] LABS: Hematocrit 37.1 % (36-46); Hemoglobin 12.3 g/dL (12.0-16.0); Mean Corpuscular HGB Conc 33.1 % (30-36); Mean Corpuscular Hemoglobin 28.6 PG (26-34); Mean Corpuscular Volume 86.4 fL (80-100); Platelet Count 158 X10^3/uL (150-400); Red Blood Cell Count 4.29 X10^6/uL (4.0-5.2); Red Cell Distribution Width 14.4 % (11.6-14.8); White Blood Cell Count 4.8 X10^3/uL (4.5-11.0)
[2022-04-29 12:25] LABS: Alanine Aminotransferase 18 IU/L (<35); Albumin Globulin Ratio 1.4 (1.0-2.8); Alkaline Phosphatase 72 U/L (38-126); Aspartate Aminotransferase 21 IU/L (14-36); BUN Creatinine Ratio 21.3 (6-22); Bilirubin Total 0.4 mg/dL (0.2-1.3); Blood Urea Nitrogen 13 mg/dL (7-17); Calcium 9.1 mg/dL (8.4-10.2); Carbon Dioxide 30 mmol/L (22-32); Chloride 102 mmol/L (98-107); Cholesterol 127 mg/dL (140-199); Estimated Glomerular Filt Rate > 60 mL/min (>60); Globulin 2.8 g/dL (1.7-4.1); Glucose 93 mg/dL (80-110); HDL Cholesterol 51 mg/dL (40-60); HEMOLYSIS < 15 (0-50); LDL Cholesterol Calculated 43 mg/dL (<100); Potassium 3.9 mmol/L (3.4-5.1); Sodium 138 mmol/L (137-145); Total Protein 6.8 g/dL (6.3-8.2); Triglycerides 163 mg/dL (35-150)
--- NOTE | 2022-04-29 15:22 | DI.RAD.S_ITS ---
PROCEDURE: XR CHEST 2V INDICATIONS: chest pain TECHNIQUE: 2 views of the chest were acquired. COMPARISON: None. FINDINGS: Surgical changes and devices: Surgical clips are seen in left breast. Lungs and pleura: Lungs are clear. No pleural effusions or pneumothorax. Mediastinum: Mediastinal contours are normal. Heart size is normal. Bones and chest wall: No suspicious bony abnormalities. Soft tissues appear unremarkable. IMPRESSION: No acute cardiopulmonary pathology. Dictated by: Gustavo Rojas M.D. on 04/29/2022 at 16:55 Approved by: Gustavo Rojas M.D. on 04/29/2022 at 16:55
== END ==
PROVIDERS: PCP Internal Medicine; Referring Provider Internal Medicine; Visit Provider Internal Medicine
DX: E78.2 Mixed hyperlipidemia (principal); R07.89 Other chest pain
CPT/HCPCS: 36415; 71046; 80053; 80061; 85027

== ENCOUNTER → 2022-12-14 08:31 | Outpatient (CLI) | payer MEDICARE, OTHER, SELFPAY ==
--- NOTE | 2022-12-14 | DI.MG.S_ITS ---
BILATERAL DIGITAL SCREENING MAMMOGRAM 3D/2D WITH CAD POST LUMPECTOMY: 12/14/2022 CLINICAL: Routine screening. Personal history of left breast cancer. Comparison is made to exams dated: 12/13/2021 mammogram, 12/11/2020 mammogram, 12/11/2019 mammogram, and 08/17/2020 mammogram - [facility]. Both breasts are heterogeneously dense, which may obscure small masses (category c / 51-75% glandular tissue). Current study was also evaluated with a Computer Aided Detection (CAD) system. There are benign calcifications in both breasts. There also are benign vascular calcifications in the right breast. Additionally, there are benign post operative findings in the left breast. No significant masses, calcifications, or other findings are seen in either breast. There has been no significant interval change. IMPRESSION: BENIGN There is no mammographic evidence of malignancy. A 1 year screening mammogram is recommended. This exam was interpreted at Station ID: [id number]. NOTE: For mammograms, a report in lay terms will be sent to the patient. Approximately 15% of breast malignancies will not be visualized mammographically. In the management of a palpable breast mass, a negative mammogram must not discourage biopsy of a clinically suspicious lesion. Electronically Signed By: Ganesh lucio/amy:12/14/2022 16:15:15 copy to: LETITIA VARGHESE copy to: ROBERTO CARLOS GIBSON letter sent: Normal Exam ACR BI-RADS Category 2: Benign Finding(s) 3342F
== END ==
PROVIDERS: PCP Internal Medicine; Referring Provider Internal Medicine; Visit Provider Internal Medicine
DX: Z12.31 Encounter for screening mammogram for malignant neoplasm of breast (principal); Z80.3 Family history of malignant neoplasm of breast
CPT/HCPCS: 77063; 77067

== ENCOUNTER → 2023-08-29 10:28 | Outpatient (CLI) | payer MEDICARE, OTHER, SELFPAY ==
[2023-08-29 11:33] LABS: Add Manual Diff / Slide Review NO; Basophils Absolute Auto 0 /uL (0-100); Basophils Percent Auto 1.4 % (0-2); Eosinophils Absolute Auto 100 /uL (0-450); Eosinophils Percent Auto 2.9 % (2-4); Hematocrit 35.3 % (36-46); Hemoglobin 11.9 g/dL (12.0-16.0); Lymphocytes Absolute Auto 700 /uL (1100-4500); Lymphocytes Percent Auto 23.7 % (25-40); Mean Corpuscular HGB Conc 33.8 % (30-36); Mean Corpuscular Hemoglobin 29.1 PG (26-34); Mean Corpuscular Volume 86.1 fL (80-100); Monocytes Absolute Auto 400 /uL (0-900); Monocytes Percent Auto 11.6 % (3-14); Neutrophils Absolute Auto 1900 /uL (1500-7000); Neutrophils Percent Auto 60.4 % (50-75); Platelet Count 194 X10^3/uL (150-400); Red Cell Distribution Width 15.5 % (11.6-14.8); White Blood Cell Count 3.1 X10^3/uL (4.5-11.0)
[2023-08-29 11:46] LABS: Alanine Aminotransferase 19 IU/L (<35); Albumin Globulin Ratio 1.6 (1.0-2.8); Alkaline Phosphatase 68 U/L (38-126); Aspartate Aminotransferase 24 IU/L (14-36); BUN Creatinine Ratio 19.4 (6-22); Bilirubin Total 0.5 mg/dL (0.2-1.3); Blood Urea Nitrogen 13 mg/dL (7-17); Calcium 9.4 mg/dL (8.4-10.2); Carbon Dioxide 28 mmol/L (22-32); Chloride 105 mmol/L (98-107); Estimated Glomerular Filt Rate > 60 mL/min (>60); Globulin 2.5 g/dL (1.7-4.1); Glucose 89 mg/dL (80-110); HEMOLYSIS < 15 (0-50); Potassium 3.9 mmol/L (3.4-5.1); Sodium 139 mmol/L (137-145); Total Protein 6.5 g/dL (6.3-8.2)
== END ==
PROVIDERS: PCP Internal Medicine; Referring Provider Internal Medicine Hematology & Oncology; Visit Provider Internal Medicine Hematology & Oncology
DX: C50.412 Malignant neoplasm of upper-outer quadrant of left female breast (principal); Z17.1 Estrogen receptor negative status [ER-]
CPT/HCPCS: 36415; 80053; 85025

== ENCOUNTER → 2023-11-28 11:18 | Outpatient (CLI) | payer MEDICARE, OTHER, SELFPAY | PROVIDERS: PCP Internal Medicine; Visit Provider Physician Assistant Surgical | DX: J02.9 Acute pharyngitis, unspecified (principal) | CPT/HCPCS: 87070 ==

== ENCOUNTER → 2023-12-20 08:18 | Outpatient (CLI) | payer MEDICARE, OTHER, SELFPAY ==
--- NOTE | 2023-12-20 08:19 | DI.MG.S_ITS ---
BILATERAL DIGITAL SCREENING MAMMOGRAM 3D/2D WITH CAD POST LUMPECTOMY: 12/20/2023 CLINICAL: Routine screening. Personal history of left breast cancer. Comparison is made to exams dated: 12/14/2022 mammogram, 12/13/2021 mammogram, and 12/11/2019 mammogram - [facility]. Both breasts are heterogeneously dense, which may obscure small masses (category c / 51-75% glandular tissue). Current study was also evaluated with a Computer Aided Detection (CAD) system. There are benign calcifications in both breasts. There also are benign vascular calcifications in the right breast. Additionally, there are benign post operative findings in the left breast. No significant masses, calcifications, or other findings are seen in either breast. There has been no significant interval change. IMPRESSION: BENIGN There is no mammographic evidence of malignancy. A 1 year screening mammogram is recommended. This exam was interpreted at Station ID: [id number]. NOTE: For mammograms, a report in lay terms will be sent to the patient. Approximately 15% of breast malignancies will not be visualized mammographically. In the management of a palpable breast mass, a negative mammogram must not discourage biopsy of a clinically suspicious lesion. Electronically Signed By: Mena Yuan M.D., Ph.D. meghann/amy:12/20/2023 13:21:22 copy to: LETITIA VARGHESE copy to: ROBERTO CARLOS GIBSON letter sent: Normal Exam ACR BI-RADS Category 2: Benign Finding(s) 3342F
== END ==
LOC: MAMMO 08:18
PROVIDERS: PCP Internal Medicine; Referring Provider Internal Medicine; Visit Provider Internal Medicine
DX: Z12.31 Encounter for screening mammogram for malignant neoplasm of breast (principal); R92.333 Mammographic heterogeneous density, bilateral breasts; R92.1 Mammographic calcification found on diagnostic imaging of breast; Z85.3 Personal history of malignant neoplasm of breast
CPT/HCPCS: 77063; 77067

== ENCOUNTER → 2024-11-14 10:44 | Outpatient (CLI) | payer MEDICARE, OTHER, SELFPAY ==
[2024-11-14 11:14] LABS: Hematocrit 37.5 % (36-46); Hemoglobin 12.6 g/dL (12.0-16.0); Mean Corpuscular HGB Conc 33.7 % (30-36); Mean Corpuscular Hemoglobin 29.0 PG (26-34); Mean Corpuscular Volume 86.3 fL (80-100); Platelet Count 154 X10^3/uL (150-400)
[2024-11-14 11:27] LABS: Blood Urea Nitrogen 15 mg/dL (7-17); Calcium 9.6 mg/dL (8.4-10.2); Carbon Dioxide 26 mmol/L (22-32); Chloride 105 mmol/L (98-107); Cholesterol 142 mg/dL (140-199); Estimated Glomerular Filt Rate > 60 mL/min (>60); Glucose 91 mg/dL (70-99); HDL Cholesterol 55 mg/dL (40-60); HEMOLYSIS < 15 (0-50); Potassium 3.9 mmol/L (3.4-5.1); Sodium 139 mmol/L (137-145); Triglycerides 151 mg/dL (35-150)
[2024-11-14 12:00] LABS: TSH w/ Reflex to FT4 3.29 uIU/mL (0.47-4.68)
== END ==
PROVIDERS: PCP Internal Medicine; Referring Provider Internal Medicine; Visit Provider Internal Medicine
DX: E78.2 Mixed hyperlipidemia (principal); R53.83 Other fatigue
CPT/HCPCS: 36415; 80048; 80061; 84443; 84450; 85027

== ENCOUNTER → 2024-11-19 14:12 | Outpatient (CLI) | payer MEDICARE, OTHER, SELFPAY ==
--- NOTE | 2024-11-19 14:15 | DI.RAD.S_ITS ---
PROCEDURE: XR DEXA AXIAL SKELETON INDICATIONS: osteopenia COMPARISON: [facility], CR, XR DEXA AXIAL SKELETON, 08/24/2021, 12:01. FINDINGS: Lumbar Spine: Bone mineral density 0.925 (previously 0.934) g/cm2, T score -1.1 (previously-1.0). Left Femoral Neck: Bone mineral density 0.631 (previously 0.631) g/cm2, T score -2.0 (previously -20). Left Hip: Bone mineral density 0.850 (previously 0.840) g/cm2, T score -0.8 (previously-0.8). Fracture Risk Calculation (when applicable): 10-year fracture risk of a major osteoporotic fracture 14 percent and of a hip fracture 4.4 percent. IMPRESSION: Osteopenia Follow-up guidelines as follows: Osteoporosis: Consider a repeat DEXA and Vertebral Fracture Assessment (VFA) exam in 2 years or sooner if medically necessary, to reassess this patient's status. Osteopenia: Consider a repeat DEXA in 2-3 years to reassess this patient's status, or if there is a new clinical indication. Normal: Consider a repeat DEXA in 5 years or sooner, or if there is a new clinical indication. All treatment decisions require clinical judgment and consideration of individual patient factors, including patient preferences, comorbidities, previous drug use, risk factors not captured in the FRAX model (e.g., frailty, falls, vitamin D deficiency, increased bone turnover, interval significant decline in bone density ) and possible under- or over-estimation of fracture risk by FRAX. In addition, the NOF Guide recommends that FDA-approved medical therapies be considered in postmenopausal women and men age >= 50 years with a: * Hip or vertebral (clinical or morphometric) fracture * T-score of <=-2.5 at the spine or hip * Ten-year fracture probability by FRAX of >= 3% for hip fracture or >=20% for major osteoporotic fracture. Dictated by: Derek Vasquez M.D. on 11/20/2024 at 9:10 Approved by: Derek Vasquez M.D. on 11/20/2024 at 9:12
== END ==
PROVIDERS: PCP Internal Medicine; Referring Provider Internal Medicine; Visit Provider Internal Medicine
DX: M85.89 Other specified disorders of bone density and structure, multiple sites (principal)
CPT/HCPCS: 77080

== ENCOUNTER 2024-12-26 09:30 | Emergency (ER) | payer MEDICARE, OTHER, SELFPAY ==
[2024-12-26 09:31] VITALS: BP 191/76; PULSE 60; RESP 12; TEMP 36.8; O2SAT 97; BMI 27.3
[2024-12-26 09:40] VITALS: BP 179/77
--- NOTE | 2024-12-26 09:46 | ED_ITS ---
HPI - Extremity Injury (Upper) General Chief Complaint: Extremity Injury, Upper Stated Complaint: LT shoulder injury yesterday Time Seen by Provider: 12/26/24 09:46 Source: patient, RN notes reviewed and old records reviewed Mode of arrival: Ambulatory Limitations: no limitations History of Present Illness HPI narrative: 89-year-old female history of dyslipidemia presents with complaint of left shoulder pain. Patient states she has had issues on and off in the past had a cortisone shot remotely 2 or 3 years ago with that shoulder. She states yesterday she reached up to grab the trunk of her car and pushed it closed and felt discomfort. She has continued to have discomfort particularly with a abduction. Patient does not appreciate any weakness. Indicates it is sort of the AC region that is seems to be the most discomfort. Can move an extraction flexion but states it is little bit uncomfortable as well. Denies any numbness or weakness. No other bony pain. 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 Patient states she had some ibuprofen this morning which was helpful. Denies any other injuries. No prior shoulder surgeries. Reports an allergy to sulfa and imipramine. No daily tobacco. Related Data Home Medications ?Medication ?Instructions ?Recorded ?Confirmed Respironics [facility]Station 02/18/21 11/25/24 cholecalciferol (vitamin D3) 25 25 mcg PO DAILY 11/25/24 mcg (1,000 unit) capsule Previous Rx's ?Medication ?Instructions ?Recorded omeprazole 20 mg capsule,delayed 20 mg PO DAILY #90 ca ps 11/25/24 release paroxetine HCl 10 mg tablet 10 mg PO DAILY #90 tabs rosuvastatin 20 mg tablet 20 mg PO DAILY #90 tabs 11/15 05/11 hydrocodone 5 mg-acetaminophen 325 1 tab PO Q6H PRN pa in #5 tabs 12/26/24 mg tablet Allergies Allergy/AdvReac Type Severity Reaction Status Date / Time imipramine (IMIPRAMINE) Allergy Intermediate Hives Verified 12/26/24 09:37 Sulfa (Sulfonamide Allergy Mild HIVES Verified 12/26/24 09:37 Antibiotics) (SULFA (SULFONAMIDE ANTIBIOTICS)) Review of Systems Review of Systems ROS Unobtainable: All systems reviewed & are unremarkable except as noted in HPI and below Patient History Medical History Lichen sclerosus et atrophicus of the vulva Sebaceous cyst of labia Change in bowel function Do not resuscitate Irritable bowel syndrome Right rotator cuff tendonitis Generalized anxiety disorder Cerebrovascular disease GERD without esophagitis Invasive ductal carcinoma of left breast (01/2020) Vaginal dryness Anxiety Musculoskeletal pain Mumps Measles Chicken pox Kidney stones (~1995) GERD (gastroesophageal reflux disease) Sleep apnea (~2010) Mumps Measles Chicken pox Cataracts, bilateral (~2013) Mixed hyperlipidemia (12/01/15) Psoriasis (11/05/13) Depression (12/16/10) History of renal calculi (12/16/10) Osteopenia (12/16/10) Surgical History History of tonsillectomy Family History Mother Cancer Brother Liver disease Brother No problems noted. Father Alcohol abuse Head and neck cancer Social History marital status: details: (Ray) number of children: 2 household members: spouse lives independently: Yes caregiver/support person: No housing: house pets and animals: No education level: high school occupational status: previously employed and other Previous occupational history: [employer]: [employer] travel history: recurrent leisure activities: exercise and other Smoking Status: Unknown if ever smoked Tobacco: How many years used: 20 Smokeless tobacco user: other quit status: quit date established second hand exposure: No alcohol intake: current substance use type: does not use Smoking Status: Unknown if ever smoked alcohol intake frequency: 0-2 drinks per day Exam Narrative Exam Narrative: GENERAL: Alert and oriented x three, elderly female in mild distress HEENT: Head normocephalic, atraumatic, EOMI, pupils reactive, face symmetric, moist mucous membranes NECK: Supple, full range of motion CARDIOVASCULAR: Regular rate and rhythm without murmurs, rubs or gallops. RESPIRATORY: Breath sounds equal bilaterally, no wheezes rales or rhonchi. ABDOMEN: Soft, nontender. Normoactive bowel sounds all 4 quadrants. No guarding or rebound, rigidity, no mass : No CVA tenderness EXTREMITIES: Normal range of motion of the hand wrist and elbow, patient is able to abduct up to 90? but then becomes painful, she can be moved passively past this point, has good flexion-extension but does not feel comfortable going through full range of emotion, no bony tenderness on examination. No tenderness over the biceps tendon. No warmth erythema or skin changes. No pops or crepitus appreciated on exam. Patient has equal sanitor bilaterally. 2+ radial pulse. Normal sensation throughout. No clubbing or edema. Neurovascularly intact NEUROLOGICAL: Cranial nerves II through XII grossly intact. Moving all extremities SKIN: Warm, dry, no petechiae, no rashes or lesions. Initial Vital Signs Initial Vital Signs: Vital Signs Temperature 98.3 F 12/26/24 09:31 Pulse Rate 60 12/26/24 09:31 Respiratory Rate 12 12/26/24 09:31 Blood Pressure 191/76 H 12/26/24 09:31 Pulse Oximetry 97 12/26/24 09:31 Oxygen Delivery Method Room Air 12/26/24 09:31 Course Orders Ordered: ED Orders 12/26/24 09:52 XR shoulder LT 2+ views Stat Vital Signs Vital signs: Vital Signs - 8 hr 12/26/24 10:43 Pulse Rate 55 L Respiratory Rate 18 Blood Pressure 142/66 H Pulse Oximetry 99 Oxygen Delivery Method Room Air MDM - Extremity Injury (Upper) MDM Narrative Medical decision making narrative: 89-year-old female with increased pain after fully extending at the shoulder she has discomfort particularly with abduction less so with abduction. Admission for bony injury is lower but we will obtain x-ray suspect tendinitis or possibly other musculoskeletal injury. Shoulder x-ray [id number] AC joint osteoarthritis. Discussed findings with the patient discussed can use a sling but would encourage continued range of motion with acetaminophen and/or ibuprofen as needed for pain. Patient is to follow up if persistent symptoms. Discharge Plan Departure Patient Disposition: Home Clinical Impression: Pain in right shoulder Instructions: DI for Shoulder Pain Activity Restrictions/Additional Instructions: Your imaging shows some eawc-za-cfynxwvs osteoarthritis of the AC joint, no fractures or dislocations appreciated. If you have persistent or worsening symptoms you can follow up with primary care and/or orthopedic surgery. I suspect your pain is related to her osteoarthritis or possibly a little bit of tendonitis. You can continue with gentle range of motion as tolerated. Can take acetaminophen and/or ibuprofen as needed for pain. If necessary you can take narcotic pain medication 1 tablet every 6 hours as needed. This medication can make you sleepy do not drive, perform hazardous activities or make any major decisions while taking it. This medication will make you constipated please take a stool softener once to twice daily until stools are soft and regular. Prescription sent to [facility] in [place] You can use ice and/or heat to the affected areas needed. If you develop worsening pain, numbness, tingling, discoloration of the affected body part, loosen the splint by loosening the TRELL wrap, and either see your doctor for an urgent re-assessment, or return to the Emergency Department. Return to the Emergency Department for any new or worsening symptoms. Prescriptions: New hydrocodone-acetaminophen 5-325 mg tablet 1 tab PO Q6H PRN (Reason: pain) Qty: 5 0RF No Action cholecalciferol (vitamin D3) 25 mcg (1,000 unit) capsule 25 mcg PO DAILY omeprazole 20 mg capsule,delayed release(DR/EC) 20 mg PO DAILY Qty: 90 3RF paroxetine HCl 10 mg tablet 10 mg PO DAILY Qty: 90 3RF rosuvastatin 20 mg tablet 20 mg PO DAILY Qty: 90 3RF (DME) Respironics [facility]Station See Rx Instructions .Route .MEDSUPPLY Rx Instructions: CPAP: Min: 8 Max:14 DME: [facility] Referrals: Juvencio Wong MD [Primary Care Provider, Internal Medicine] Braydon Davis MD [Physician, Orthopedic Surgery] Stand Alone Forms: Patient Portal/API
--- NOTE | 2024-12-26 09:52 | DI.RAD.S_ITS ---
PROCEDURE: XR SHOULDER LT MIN 2V INDICATIONS: L shoulder, felt pain after reached up and pulled car trunk. TECHNIQUE: 3 views of the shoulder were acquired. COMPARISON: None. FINDINGS: Bones: No fractures or dislocations. Zyuj-do-zvbeprmg osteoarthritis at the AC joint. No suspicious bony lesions. Visualized ribs appear intact. Soft tissues: No suspicious soft tissue calcifications. IMPRESSION: Igip-ol-cswypsbu AC joint osteoarthritis. Dictated by: Maik Carter M.D. on 12/26/2024 at 10:17 Approved by: Maik Carter M.D. on 12/26/2024 at 10:18
[2024-12-26 10:43] VITALS: BP 142/66; PULSE 55; RESP 18; O2SAT 99
== END 2024-12-26 10:44 | disposition home or self-care (01) ==
PROVIDERS: Emergency Provider Emergency Medicine; PCP Internal Medicine
DX: M25.512 Pain in left shoulder (principal); X58.XXXA Exposure to other specified factors, initial encounter
CPT/HCPCS: 73030; 99281; 99283

== ENCOUNTER → 2025-01-06 13:19 | Outpatient (CLI) | payer MEDICARE, OTHER, SELFPAY ==
--- NOTE | 2025-01-06 13:20 | DI.MG.S_ITS ---
MM screening mammo BI: 01/06/2025. BI-RADS: 2 CLINICAL: 89-year old female for bilateral screening mammogram. No Tyrer-Cuzick risk score calculation due to the patient's personal history of breast cancer. Patient reports a history of left breast carcinoma diagnosed at age 87. Status-post left lumpectomy. No first-degree family history of breast cancer. Patient was diagnosed within the last 5 years. PRIOR EXAMS: 12/20/2023, 12/14/2022, 12/13/2021, 12/11/2020, 08/17/2020, 01/09/2020, 12/11/2019, 11/22/2018, 11/22/2017. MAMMOGRAPHY TECHNIQUE: 2D and 3D (tomosynthesis) digital mammographic views obtained, with additional images as needed for full coverage. Current study was also evaluated with a Computer Aided Detection (CAD) system. DENSITY C. The breasts are heterogeneously dense, which may obscure small masses. MAMMOGRAPHY FINDINGS Right: No suspicious mass, asymmetry, microcalcification, or other abnormality seen. Left: Benign-appearing post-surgical changes noted on the left. There are no suspicious masses, calcifications, or other findings in the breast. IMPRESSION: Right * No evidence of malignancy. Left * No evidence of malignancy with benign findings. RECOMMENDATIONS Bilateral * Annual screening mammography. OVERALL ASSESSMENT CATEGORY BI-RADS-2: Benign. The [employer] recommends annual screening mammography beginning at age 40 for women with average risk of breast cancer. ELECTRONICALLY SIGNED: Dena Strickland M.D. on 01/06/2025 at 09:48:51 PM PT Interpreting Station ID: [id number]
== END ==
PROVIDERS: PCP Internal Medicine; Referring Provider Internal Medicine; Visit Provider Internal Medicine
DX: Z12.31 Encounter for screening mammogram for malignant neoplasm of breast (principal); Z85.3 Personal history of malignant neoplasm of breast; R92.333 Mammographic heterogeneous density, bilateral breasts
CPT/HCPCS: 77063; 77067

== ENCOUNTER 2025-03-10 07:25 | Emergency (ER) | payer MEDICARE, OTHER, SELFPAY ==
--- NOTE | 2025-03-10 07:36 | DI.CT.S_ITS ---
PROCEDURE: CT ABDOMEN PELVIS W CON INDICATIONS: no bm ab pain TECHNIQUE: After the administration of intravenous contrast, axial sections acquired from the lung bases to the pubic symphysis. Coronal and sagittal reformats were performed. For radiation dose reduction, the following was used: automated exposure control, adjustment of mA and/or kV according to patient size. COMPARISON: None. FINDINGS: Image quality: Diagnostic. Lower Chest: No significant findings. ABDOMEN: Liver: No solid mass. Gallbladder: No radiopaque gallstones or wall thickening. Biliary ducts: No biliary dilation. Pancreas: No ductal dilation. Spleen: Size is within normal limits. Adrenal Glands: No adrenal nodules. Kidneys and Ureters: 3 mm nonobstructing calculus at the inferior pole of the right kidney. No hydronephrosis. No solid mass. No complex renal cystic lesion which requires follow up. Stomach and Bowel: Small hiatal hernia. Prominent stool ball is seen in the rectum measuring 6.2 cm in diameter with trace perirectal fat stranding. No definite wall discontinuity or extraluminal gas is seen. Multiple diverticula in the colon without signs of acute diverticulitis. Moderate stool throughout the colon. Small bowel loops are nondilated. Peritoneum: No abnormal intraperitoneal fluid. No free air. Ventral Wall: No significant ventral hernia. Abdominal Nodes: No retroperitoneal or mesenteric adenopathy by size criteria. Vessels: Aorta and inferior vena cava are normal in size. Moderate aortic atherosclerotic calcifications. PELVIS: Pelvic Organs: Unremarkable. Bladder: No bladder wall thickening, accounting for underdistention. Pelvic Nodes: No enlarged lymph nodes. Miscellaneous: No inguinal hernias are seen. Bones: No aggressive osseous abnormality. Multilevel degenerative changes are seen in the spine. IMPRESSION: 1. Prominent stool ball in the rectum with perirectal fat stranding, suspicious for impaction and/or stercoral colitis. 2. Colonic diverticulosis without acute diverticulitis. 3. Nonobstructing 3 mm right renal calculus. No hydronephrosis. Approved by: Mariano Yañez M.D. on 03/10/2025 at 8:20
[2025-03-10 07:37] VITALS: BP 199/90; PULSE 73; RESP 16; TEMP 36.6; O2SAT 99; BMI 27.3
--- NOTE | 2025-03-10 07:38 | ED.ABDPAIN ---
HPI - Abdominal Pain General Chief Complaint: Abdominal Pain Stated Complaint: No bowel movement in 2 days Time Seen by Provider: 03/10/25 07:36 History of Present Illness HPI narrative: Patient 89-year-old female presenting today with constipation. She reports she has not had a bowel movement and last couple of days she feels like he is having increased abdominal pain. She feels like since last night she can not empty her bladder completely she feels like she does have stool in her rectum. No nausea no vomiting no fever. She denies any kind of chest pain. Related Data Home Medications ?Medication ?Instructions ?Recorded ?Confirmed Respironics [facility] 02/18/21 02/27/25 cholecalciferol (vitamin D3) 25 25 mcg PO DAILY 11/08/21 02/27/25 mcg (1,000 unit) capsule Previous Rx's ?Medication ?Instructions ?Recorded omeprazole 20 mg capsule,delayed 20 mg PO DAILY #90 caps 11/25/24 release paroxetine HCl 10 mg tablet 10 mg PO DAILY #90 tabs 11/25/24 rosuvastatin 20 mg tablet 20 mg PO DAILY #90 tabs 11/25/24 hydrocodone 5 mg-acetaminophen 325 1 tab PO Q6H PRN pain #5 tabs 12/26/24 mg tablet meloxicam 15 mg tablet 15 mg PO DAILY #90 tabs 02/27/25 Allergies Allergy/AdvReac Type Severity Reaction Status Date / Time imipramine (IMIPRAMINE) Allergy Intermediate Hives Verified 02/27/25 09:58 Sulfa (Sulfonamide Allergy Mild HIVES Verified 02/27/25 09:58 Antibiotics) (SULFA (SULFONAMIDE ANTIBIOTICS)) Patient History Medical History Lichen sclerosus et atrophicus of the vulva Sebaceous cyst of labia Change in bowel function Do not resuscitate Irritable bowel syndrome Right rotator cuff tendonitis Generalized anxiety disorder Cerebrovascular disease GERD without esophagitis Invasive ductal carcinoma of left breast (01/2020) Vaginal dryness Anxiety Musculoskeletal pain Mumps Measles Chicken pox Kidney stones (~1995) GERD (gastroesophageal reflux disease) Sleep apnea (~2010) Mumps Measles Chicken pox Cataracts, bilateral (~2013) Mixed hyperlipidemia (12/01/15) Psoriasis (11/05/13) Depression (12/16/10) History of renal calculi (12/16/10) Osteopenia (12/16/10) Surgical History History of tonsillectomy Family History Mother Cancer Brother Liver disease Brother No problems noted. 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 travel history: recurrent leisure activities: exercise and other Smoking Status: Never smoker Tobacco: How many years used: 20 Smokeless tobacco user: other quit status: quit date established second hand exposure: No alcohol intake: current substance use type: does not use alcohol intake frequency: 0-2 drinks per day Exam Initial Vital Signs Initial Vital Signs: Vital Signs Temperature 97.9 F 03/10/25 07:37 Pulse Rate 73 03/10/25 07:37 Respiratory Rate 16 03/10/25 07:37 Blood Pressure 199/90 H 03/10/25 07:37 Pulse Oximetry 99 03/10/25 07:37 Oxygen Delivery Method Room Air 03/10/25 07:37 GENERAL: Well-appearing, well-nourished and in no acute distress. HEENT: Head atraumatic,EOMI, pupils reactive, face symmetric, moist mucous membranes CARDIOVASCULAR: Regular rate and rhythm without murmurs, rubs or gallops. RESPIRATORY: Breath sounds equal bilaterally, no wheezes rales or rhonchi. ABDOMEN: Soft, mild lower abdominal pain no distention no peritoneal signs RECTAL: Stool present in rectum no hemorrhoids nonbloody EXTREMITIES: Normal range of motion, no clubbing or edema. Neurovascularly intact NEUROLOGICAL: Alert and oriented x4.Normal gait and speech. Cranial nerves II through XII grossly intact. SKIN: Warm, dry, no laceration, no petechiae, no rashes or lesions. Course Orders Ordered: ED Orders 03/10/25 07:36 CT abdomen pelvis w con Stat 03/10/25 08:02 Complete Blood Count AUTO DIFF Stat Comprehensive Metabolic Panel Stat Lipase Stat Discontinued Medications Lidocaine HCl (Lidocaine 2% (Glydo) 6 Ml Gel) 6 ml TOP NOW ONE Stop: 03/10/25 10:21 Last Admin: 03/10/25 11:34 Dose: 6 ml Documented By: CB Sodium Biphosphate/Sodium Phosphate (Fleets Enema) 1 each UT NOW ONE Stop: 03/10/25 08:26 Last Admin: 03/10/25 09:48 Dose: 1 each Documented By: RB Vital Signs Vital signs: Vital Signs - 8 hr 03/10/25 07:37 Temperature 97.9 F Pulse Rate 73 Respiratory Rate 16 Blood Pressure 199/90 H Pulse Oximetry 99 Oxygen Delivery Method Room Air MDM - Abdominal Pain Lab Data 03/10/25 08:02 03/10/25 08:02 Labs: Lab Results 03/10/25 Range/Units 08:02 WBC 4.6 (4.5-11.0) X10^3/uL RBC 4.40 (4.0-5.2) X10^6/uL Hgb 12.8 (12.0-16.0) g/dL Hct 38.0 (36-46) % MCV 86.2 (80-100) fL MCH 29.1 (26-34) PG MCHC 33.8 (30-36) % RDW 14.9 H (11.6-14.8) % Plt Count 139 L (150-400) X10^3/uL Neut % (Auto) 73.9 (50-75) % Lymph % (Auto) 11.4 L (25-40) % Elbert % (Auto) 11.2 (3-14) % Eos % (Auto) 2.7 (2-4) % Baso % (Auto) 0.8 (0-2) % Neut # (Auto) 3400 (4735-1358) /uL Lymph # (Auto) 500 L (4891-3337) /uL Elbert # (Auto) 500 (0-900) /uL Eos # (Auto) 100 (0-450) /uL Baso # (Auto) 0 (0-100) /uL Sodium 138 (137-145) mmol/L Potassium 4.2 (3.4-5.1) mmol/L Chloride 102 (98-107) mmol/L Carbon Dioxide 27 (22-32) mmol/L BUN 18 H (7-17) mg/dL Creatinine 0.65 (0.52-1.04) mg/dL Estimated GFR > 60 (>60) mL/min BUN/Creatinine Ratio 27.7 H (6-22) Glucose 112 H (70-99) mg/dL Calcium 9.3 (8.4-10.2) mg/dL Total Bilirubin 0.3 (0.2-1.3) mg/dL AST 29 (14-36) IU/L ALT 30 (<35) IU/L Alkaline Phosphatase 68 (38-126) U/L Total Protein 7.4 (6.3-8.2) g/dL Albumin 4.4 (3.5-5.0) g/dL Globulin 3.0 (1.7-4.1) g/dL Albumin/Globulin Ratio 1.5 (1.0-2.8) Lipase 47 (23-300) U/L Point of care testing: Urine Dip Bedside Urine Glucose Negative Bedside Urine Bilirubin - Negative Bedside Urine Ketone - Negative Urine Specific [place] 1.010 Bedside Urine Occult Blood - Negative Bedside Urine pH 6.0 Bedside Urine Protein - Negative Bedside Urine Urobilinogen - Negative Bedside Urine Nitrite - Negative Bedside Urine Leukocytes - Negative Esterase Imaging Data CT scan - abdomen/pelvis: Radiologist's Impression: PROCEDURE: CT ABDOMEN PELVIS W CON INDICATIONS: no bm ab pain TECHNIQUE: After the administration of intravenous contrast, axial sections acquired from the lung bases to the pubic symphysis. Coronal and sagittal reformats were performed. For radiation dose reduction, the following was used: automated exposure control, adjustment of mA and/or kV according to patient size. COMPARISON: None. FINDINGS: Image quality: Diagnostic. Lower Chest: No significant findings. ABDOMEN: Liver: No solid mass. Gallbladder: No radiopaque gallstones or wall thickening. Biliary ducts: No biliary dilation. Pancreas: No ductal dilation. Spleen: Size is within normal limits. Adrenal Glands: No adrenal nodules. Kidneys and Ureters: 3 mm nonobstructing calculus at the inferior pole of the right kidney. No hydronephrosis. No solid mass. No complex renal cystic lesion which requires follow up. Stomach and Bowel: Small hiatal hernia. Prominent stool ball is seen in the rectum measuring 6.2 cm in diameter with trace perirectal fat stranding. No definite wall discontinuity or extraluminal gas is seen. Multiple diverticula in the colon without signs of acute diverticulitis. Moderate stool throughout the colon. Small bowel loops are nondilated. Peritoneum: No abnormal intraperitoneal fluid. No free air. Ventral Wall: No significant ventral hernia. Abdominal Nodes: No retroperitoneal or mesenteric adenopathy by size criteria. Vessels: Aorta and inferior vena cava are normal in size. Moderate aortic atherosclerotic calcifications. PELVIS: Pelvic Organs: Unremarkable. Bladder: No bladder wall thickening, accounting for underdistention. Pelvic Nodes: No enlarged lymph nodes. Miscellaneous: No inguinal hernias are seen. Bones: No aggressive osseous abnormality. Multilevel degenerative changes are seen in the spine. IMPRESSION: 1. Prominent stool ball in the rectum with perirectal fat stranding, suspicious for impaction and/or stercoral colitis. 2. Colonic diverticulosis without acute diverticulitis. 3. Nonobstructing 3 mm right renal calculus. No hydronephrosis. Approved by: Mariano Yañez M.D. on 03/10/2025 at 8:20 MDM Narrative Medical decision making narrative: Patient 89-year-old female presenting to day with abdominal pain constipation. Blood work has been reviewed CBC no abnormalities CMP no electrolyte abnormality or EMMANUEL Bilirubin liver enzymes within normal limits Urinalysis negative for UTI CT showed large stool in rectum with perirectal fat stranding. Bladder was also noted to be quite distended Patient ultimately required a straight catheterization which emptied her bladder scale over 1 L out. Attempted enema however unsuccessful. Digital disimpaction, after disimpaction patient did have more of a bowel movement overall feeling better feels ready able to go home. Discharge Plan Departure Patient Disposition: Home Clinical Impression: Constipation Instructions: DI for Constipation Activity Restrictions/Additional Instructions: *You have been diagnosed with constipation *What to do: At this time continue to try and have bowel movement at home *Continue to take medications as directed Colace 1-2 times daily as needed for constipation MiraLax once daily if needed for severe constipation May try an enema home if needed. *Follow up with your primary care provider in 2-3 days or call [phone] *Return to ER if you should have increasing pain nausea vomiting fever or any new, worsening or concerning symptoms Prescriptions: No Action cholecalciferol (vitamin D3) 25 mcg (1,000 unit) capsule 25 mcg PO DAILY omeprazole 20 mg capsule,delayed release(DR/EC) 20 mg PO DAILY Qty: 90 3RF paroxetine HCl 10 mg tablet 10 mg PO DAILY Qty: 90 3RF rosuvastatin 20 mg tablet 20 mg PO DAILY Qty: 90 3RF hydrocodone-acetaminophen 5-325 mg tablet 1 tab PO Q6H PRN (Reason: pain) Qty: 5 0RF meloxicam 15 mg tablet 15 mg PO DAILY Qty: 90 0RF (DME) Respironics [facility] See Rx Instructions .Route .MEDSUPPLY Rx Instructions: CPAP: Min: 8 Max:14 DME: [facility] Referrals: Juvencio Wong MD [Primary Care Provider, Internal Medicine] Stand Alone Forms: Patient Portal/API
[2025-03-10 08:08] LABS: Add Manual Diff / Slide Review NO; Hematocrit 38.0 % (36-46); Hemoglobin 12.8 g/dL (12.0-16.0); Lymphocytes Absolute Auto 500 /uL (1100-4500); Mean Corpuscular HGB Conc 33.8 % (30-36); Mean Corpuscular Hemoglobin 29.1 PG (26-34); Mean Corpuscular Volume 86.2 fL (80-100); Platelet Count 139 X10^3/uL (150-400)
[2025-03-10 08:20] LABS: Alanine Aminotransferase 30 IU/L (<35); Albumin 4.4 g/dL (3.5-5.0); Albumin Globulin Ratio 1.5 (1.0-2.8); Alkaline Phosphatase 68 U/L (38-126); Blood Urea Nitrogen 18 mg/dL (7-17); Calcium 9.3 mg/dL (8.4-10.2); Carbon Dioxide 27 mmol/L (22-32); Chloride 102 mmol/L (98-107); Estimated Glomerular Filt Rate > 60 mL/min (>60); Globulin 3.0 g/dL (1.7-4.1); Glucose 112 mg/dL (70-99); HEMOLYSIS < 15 (0-50); Lipase 47 U/L (23-300); Potassium 4.2 mmol/L (3.4-5.1); Sodium 138 mmol/L (137-145); Total Protein 7.4 g/dL (6.3-8.2)
[2025-03-10] MEDS: FLEETS ENEMA 1 EACH PR (09:48)
[2025-03-10 11:00] VITALS: BP 160/77; PULSE 78; RESP 18; O2SAT 96
[2025-03-10] MEDS: LIDOCAINE 2% (GLYDO) 6 ML GEL TOP (11:34)
== END 2025-03-10 12:19 | disposition home or self-care (01) ==
PROVIDERS: Emergency Provider Emergency Medicine; PCP Internal Medicine
DX: K59.00 Constipation, unspecified (principal); R33.9 Retention of urine, unspecified
CPT/HCPCS: 51701; 51798; 74177; 80053; 81003; 83690; 85025; 99283; 99284; Q9967